=== PATIENT | female | born 1985 | race Caucasian/White ===

== ENCOUNTER 2024-10-14 08:43 | Outpatient (CLI) | payer SELFPAY | END 2024-10-14 23:59 | disposition home or self-care (01) | LOC: RAD 08:43 | PROVIDERS: ATTEND Nurse Practitioner Family | DX: Z13.6 Encounter for screening for cardiovascular disorders (principal); R53.83 Other fatigue; R42 Dizziness and giddiness | CPT/HCPCS: 75571 ==